=== PATIENT | male | born 1960 | race American Indian/Alaskan Native ===

== ENCOUNTER 2018-02-27 08:33 | Day surgery (SDC) | payer BC ==
[~2018-02-27 08:33] MED LIST: NACL 0.9% 1000 ML 1,000 ML IV SCH
--- NOTE | 2018-02-27 09:35 | Anesthesia Consultation ---
Anesthesia Consult and Med Hx Date of service: 02/27/18 - Airway Anesthetic Teeth Evaluation: Dentures (upper/lower) ROM Head & Neck: Adequate Mental/Hyoid Distance: Adequate Mallampati Class: Class II Intubation Access Assessment: Good - Pulmonary Exam CTA: Yes - Cardiac Exam Cardiac Exam: RRR - Pre-Operative Health Status ASA Pre-Surgery Classification: ASA1 Proposed Anesthetic Plan: MAC - Cardiovascular System Hx Heart Murmur: Yes
[2018-02-27] MEDS ORDERED: DIPRIVAN 10 MG/ML IV ONE ×2 (09:47)
[2018-02-27] MEDS ORDERED: WATER FOR IRRIG STERILE IR ONE (09:48)
--- NOTE | 2018-02-27 10:26 | Short Stay Summary ---
Short Stay Documentation Date of service: 02/27/18 Narrative H&P: The patient presents for his first screening colonoscopy. Average risks. - History Past Medical History: No medical history Past Surgical History: No surgical history Social history: no significant social history, , lives with family, no smoking, no alcohol abuse - Allergies and Medications Current Medications: Allergies No Known Allergies Allergy (Verified 02/26/18 13:17) Home Medications Medication Instructions Recorded Confirmed Last Taken Type No Known Home Medications [No 02/26/18 02/26/18 Unknown History Reported Home Medications] Active Medications Sodium Chloride (Nacl 0.9% 1000 Ml) 1,000 mls @ 50 mls/hr IV DIRECT RHYS Last Admin: 02/27/18 09:44 Dose: 50 mls/hr - Physical exam General appearance: no acute distress, well-nourished Integumentary: no rash, no growths, no abnormal pigmentation HEENT: Atraumatic, PERRLA, EOMI, Mucous membr. moist/pink Lungs: Clear to auscultation, Normal air movement Breasts: deferred Heart: Regular rate, Normal S1, Normal S2, No murmurs Gastrointestinal: normoactive bowel sounds, no tenderness, no distended, no masses, no guarding, no organomegaly Male Genitourinary: deferred Rectal Exam: normal exam-external/orifice, normal rectal tone, no mass Extremities: no ischemia, pulses intact, pulses symmetrical, No edema, normal temperature, normal color, Full ROM Neurological: Normal gait, Normal speech, Strength at 5/5 X4 ext, Normal tone, Sensation intact, Cranial nerves 3-12 NL - Brief post op/procedure progress note Date of procedure: 02/27/18 Findings: see dictated report Estimated blood loss: none Pathology: none Condition: stable - Disposition Condition at discharge: Good Disposition: DC-01 TO HOME OR SELFCARE - Discharge Diagnoses (1) Colon cancer screening Status: Acute Short Stay Discharge Plan Follow up with: RUBEN CHAN MD [Primary Care Provider] - 7 Days
--- NOTE | 2018-02-27 10:34 | Operative Report ---
Operative Report Operative Report: Date of procedure: 02/27/2018 Preprocedure diagnosis: Screening colonoscopy. No prior studies. Average risk. Post procedure diagnosis: Few left colon diverticula otherwise normal to the cecum Procedure: Colonoscopy to the cecum Endoscopist: Dr. Pearl Anesthesia: Monitored anesthesia care per anesthesia department Estimated blood loss: 0 Medications: Monitored anesthesia care. See separate report by anesthesia for details. After careful discussion of the nature and purpose of the procedure as well as details of the technique risks benefits and alternatives the patient gave consent. Please see recent history and physical from the office. The patient was placed in the left lateral decubitus position and medicated per anesthesia. A rectal exam was performed sphincter tone was normal there were no masses palpable. The Designlabn 570 scope was passed transanally and advanced under continuous direct vision without difficulty to the cecum. The colon was well prepared. The cecum was normal. The ascending colon was normal and on forward and retroflexed views. The transverse colon, descending colon, and sigmoid colon were normal with the exception of a few scattered diverticula in the sigmoid colon. The rectum was normal on forward and retroflexed views. The procedure was well-tolerated overall and the patient was observed in recovery. Conclusions: Rare sigmoid diverticula, otherwise normal colonoscopy to the cecum. Plan: Repeat colonoscopy in 10 years, sooner if clinically indicated. Signed electronically: Bharathi Pearl M.D.
--- NOTE | 2018-02-27 10:51 | Anesthesia Day of Surgery ---
Anesthesia Day of Surgery - Day of Surgery Patient Examined: Yes Patient H&P Reviewed: Yes Patient is NPO: Yes
[2018-02-27 10:58] VITALS: BP 117/79
--- NOTE | 2018-02-27 16:18 | Post Anesthesia Evaluation ---
- Post Anesthesia Evaluation Patient Participated: Yes Airway Patent: Yes Stable Respiratory Function: Yes Nausea/Vomiting: No Temp > 96.8F: Yes Pain Manageable: Yes Adequeate Hydration: Yes Anesthesia Complications: No Block Receding Appropriately: No Patient on Ventilator: No
== END 2018-02-27 08:34 | disposition home or self-care (01) ==
LOC: GIO 08:33
PROVIDERS: ATTEND Internal Medicine Gastroenterology
DX: Z12.11 Encounter for screening for malignant neoplasm of colon (principal); K57.30 Diverticulosis of large intestine without perforation or abscess without bleeding
CPT/HCPCS: 45378; J2704; J7030

== ENCOUNTER 2019-10-01 12:48 | Outpatient (CLI) | payer BC ==
[2019-10-01 13:20] LABS: Hematocrit 37.8 % (35.5-45.6); Hemoglobin 11.9 gm/dl (11.8-15.2); Mean Corpuscular HGB Conc 32 % (32-34); Mean Corpuscular Volume 71 fl (84-94); Platelet Count 179 K/mm3 (140-440); Red Cell Distribution Width 15.4 % (13.2-15.2)
[2019-10-01 13:53] LABS: Alanine Aminotransferase 22 units/L (7-56); Albumin 4.1 g/dL (3.9-5); BUN/Creatinine Ratio 13; Blood Urea Nitrogen 15 mg/dL (9-20); Calcium 9.2 mg/dL (8.4-10.2); Chol/HDL Ratio 4.17 %; HDL Cholesterol 41 mg/dL (40-59); Hemolysis Index 16; LDL Cholesterol,Direct 126 mg/dL (50-130)
== END 2019-10-01 12:49 | disposition home or self-care (01) ==
LOC: LAB 12:48
PROVIDERS: ATTEND Internal Medicine
DX: Z00.00 Encounter for general adult medical examination without abnormal findings (principal)
CPT/HCPCS: 36415; 80053; 80061; 84153; 85027

== ENCOUNTER 2020-11-11 11:27 | Outpatient (CLI) | payer BC ==
[2020-11-11 12:20] LABS: Alanine Aminotransferase 21 units/L (7-56); Albumin 4.3 g/dL (3.9-5); BUN/Creatinine Ratio 12; Blood Urea Nitrogen 16 mg/dL (9-20); Calcium 9.1 mg/dL (8.4-10.2); Chol/HDL Ratio 4.27 %; HDL Cholesterol 44 mg/dL (40-59); Hemolysis Index 6; LDL Cholesterol,Direct 139 mg/dL (50-130)
[2020-11-11 12:36] LABS: Hematocrit 39.6 % (35.5-45.6); Hemoglobin 12.6 gm/dl (11.8-15.2); Mean Corpuscular HGB Conc 32 % (32-34); Mean Corpuscular Volume 70 fl (84-94); Platelet Count 173 K/mm3 (140-440); Red Blood Count 5.61 M/mm3 (3.65-5.03); Red Cell Distribution Width 15.7 % (13.2-15.2)
[2020-11-11 16:09] LABS: Total Cells Counted 100
[2020-11-11 16:10] LABS: Anisocytosis RARE; Hypochromasia 1+
== END 2020-11-11 11:28 | disposition home or self-care (01) ==
LOC: LAB 11:27
PROVIDERS: ATTEND Internal Medicine
DX: Z00.00 Encounter for general adult medical examination without abnormal findings (principal)
CPT/HCPCS: 36415; 80053; 80061; 82306; 83036; 84153; 85007; 85025

== ENCOUNTER 2021-06-24 11:37 | Outpatient (CLI) | payer BC ==
[2021-06-24 12:17] LABS: Hematocrit 41.2 % (35.5-45.6); Hemoglobin 12.9 gm/dl (11.8-15.2); Mean Corpuscular HGB Conc 31 % (32-34); Mean Corpuscular Volume 72 fl (84-94); Platelet Count 168 K/mm3 (140-440); Red Blood Count 5.74 M/mm3 (3.65-5.03); Red Cell Distribution Width 16.3 % (13.2-15.2)
[2021-06-24 12:30] LABS: Alanine Aminotransferase 22 units/L (7-56); Albumin 4.6 g/dL (3.9-5); BUN/Creatinine Ratio 17; Blood Urea Nitrogen 19 mg/dL (9-20); Calcium 9.3 mg/dL (8.4-10.2); Hemolysis Index 5
[2021-06-24 16:37] LABS: Total Cells Counted 100
[2021-06-24 16:39] LABS: Hypochromasia 1+; Ovalocytes 1+
[2021-06-24 16:40] LABS: Platelet Estimate Consistent w Auto
== END 2021-06-24 11:38 | disposition home or self-care (01) ==
LOC: LAB 11:37
PROVIDERS: ATTEND Internal Medicine
DX: R03.0 Elevated blood-pressure reading, without diagnosis of hypertension (principal)
CPT/HCPCS: 36415; 80053; 83036; 84443; 85007; 85025

== ENCOUNTER 2021-07-29 10:28 | Outpatient (CLI) | payer BC ==
--- NOTE | 2021-07-29 15:49 | Ultrasound Report ---
US soft tissue head and neck INDICATION / CLINICAL INFORMATION: LOCALIZED SWELLING MASS AND LUMP,NECK. COMPARISON: None available. FINDINGS: Limited grayscale and color Doppler imaging within the left neck area of concern, anterior to the lef t common carotid artery. There is a 5.0 x 4.0 x 2.8 cm lesion with echogenicity similar to fat with thin internal septa. No in ternal vascularity identified. IMPRESSION: 1. 5.0 cm lipoma without suspicious features in the left neck area of concern. Scribed by: Rosa Ren RDMS, RVT Scribed: 07/29/2021 2:37 PM I have reviewed the images, agree with this report, and edited this report as needed. Signer Name: Dominick Aldrich MD Signed: 07/29/2021 3:44 PM Workstation Name: [id number]
== END 2021-07-29 10:29 | disposition home or self-care (01) ==
LOC: US 10:28
PROVIDERS: ATTEND Surgery
DX: R22.1 Localized swelling, mass and lump, neck (principal)
CPT/HCPCS: 76536

== ENCOUNTER 2021-09-28 06:06 | Day surgery (SDC) | payer BC ==
[2021-09-23 09:51] LABS: Hematocrit 41.6 % (35.5-45.6); Mean Corpuscular HGB Conc 31 % (32-34); Mean Corpuscular Volume 72 fl (84-94); Platelet Count 177 K/mm3 (140-440); Red Blood Count 5.81 M/mm3 (3.65-5.03); Red Cell Distribution Width 15.4 % (13.2-15.2)
[2021-09-23 10:09] LABS: BUN/Creatinine Ratio 12; Blood Urea Nitrogen 16 mg/dL (9-20); Calcium 9.4 mg/dL (8.4-10.2); Hemolysis Index 1
[2021-09-28] MEDS ORDERED: LACTATED RINGERS 1,000 ML ONE (06:26)
[2021-09-28] MEDS ORDERED: ceFAZolin/STERILE WATER 2 GM/20 ML SYRINGE IV NR (07:00)
[2021-09-28] MEDS ORDERED: LIDOCAINE (1%) 10 MG/1 ML VIAL 20 ML MDV ONE (07:02)
[2021-09-28] MEDS ORDERED: BUPIVACAINE/PF (0.5%) 5 MG/1 ML 30 ML VIAL INFILTRATI ONE ×3 (07:02→08:32)
[2021-09-28] MEDS ORDERED: propofoL 200 MG/20 ML VIAL IV ONE (07:30)
[2021-09-28] MEDS ORDERED: HYDROmorphone 1 MG/1 ML INJ ONE (07:30)
[2021-09-28] MEDS ORDERED: ROCURONIUM 50 MG/5 ML INJ IV ONE ×2 (07:31→08:54)
[2021-09-28] MEDS ORDERED: LIDOCAINE MPF (2%) 20 MG/1 ML VIAL 5 ML ONE (07:31)
[2021-09-28] MEDS ORDERED: ONDANSETRON 4 MG/2 ML INJ IV PRN (07:35)
[2021-09-28] MEDS ORDERED: ACETAMINOPHEN 500 MG TAB PO NR (07:35)
[2021-09-28] MEDS ORDERED: MAGNESIUM OXIDE 400 MG TAB PO NR (07:35)
[2021-09-28] MEDS ORDERED: HYDROmorphone 1 MG/1 ML INJ IV PRN (07:35)
[2021-09-28] MEDS ORDERED: fentaNYL 100 MCG/2 ML INJ IV NR (07:35)
--- NOTE | 2021-09-28 07:36 | Anesthesia Day of Surgery ---
Anesthesia Day of Surgery - Day of Surgery Patient Examined: Yes Patient H&P Reviewed: Yes Patient is NPO: Yes
--- NOTE | 2021-09-28 07:38 | Anesthesia Consultation ---
Anesthesia Consult and Med Hx Date of service: 09/28/21 - Airway Anesthetic Teeth Evaluation: Partials (LOwer), Edentulous (Upper) ROM Head & Neck: Adequate Mental/Hyoid Distance: Adequate Mallampati Class: Class I Intubation Access Assessment: Good (Has neck mass; midline trachea) - Pre-Operative Health Status ASA Pre-Surgery Classification: ASA1 Proposed Anesthetic Plan: General Nerve Block: TAP - Pulmonary Hx Smoking: No Hx Sleep Apnea: No (SNORES-HIGH RISK ON KARLOS SCREEN) - Cardiovascular System Hx Hypertension: No Hx Heart Murmur: Yes - Central Nervous System Hx Psychiatric Problems: No - Gastrointestinal Hx Gastroesophageal Reflux Disease: No - Hematic Hx Sickle Cell Disease: No - Other Systems Hx Alcohol Use: No Hx Substance Use: No Hx Cancer: No
[2021-09-28] MEDS ORDERED: dexAMETHasone 4 MG/ML VIAL ONE (07:41)
[2021-09-28] MEDS ORDERED: BUPIVACAINE/PF (0.25%) 2.5 MG/ML 30 ML VIAL INFILTRATI ONE (07:41)
[2021-09-28] MEDS ORDERED: BUPIVACAINE-EPINEPHRINE/PF 0.25%-1:200,000 (30 ML) VIAL INFILTRATI ONE (07:41)
[2021-09-28] MEDS ORDERED: CELECOXIB 200 MG CAP PO NR (08:00)
[2021-09-28] MEDS ORDERED: LACTATED RINGERS 1,000 ML IV SCH (08:00)
[2021-09-28] MEDS ORDERED: MIDAZOLAM 2 MG/2 ML INJ IV NR (08:00)
[2021-09-28] MEDS ORDERED: SODIUM CHLORIDE 0.9% IRR 1,500 ML BOTTLE IR ONE (08:32)
[2021-09-28] MEDS ORDERED: WATER FOR IRRIG STERILE 1,500 ML BOTTLE IR ONE (08:32)
[2021-09-28] MEDS ORDERED: LIDOCAINE (1%) 10 MG/1 ML VIAL 20 ML MDV INFILTRATI ONE ×2 (08:32)
[2021-09-28] MEDS ORDERED: NEOSTIGMINE 10MG/10 ML INJ MDV ONE (10:38)
[2021-09-28] MEDS ORDERED: ONDANSETRON 4 MG/2 ML INJ ONE (10:38)
[2021-09-28] MEDS ORDERED: GLYCOPYRROLATE 0.4 MG/2 ML INJ ONE (10:38)
--- NOTE | 2021-09-28 10:46 | Short Stay Summary ---
Short Stay Documentation Date of service: 09/28/21 - History Principal diagnosis: VENTRAL HERNIA, SOFT TISSUE MASS NECK H&P: obtained from office - Allergies and Medications Current Medications: Allergies No Known Allergies Allergy (Verified 02/26/18 13:17) Home Medications Medication Instructions Recorded Confirmed Last Taken Type Ascorbic Acid [Vitamin C] 500 mg PO DAILY 09/15/21 09/15/21 Unknown History Multivitamin [One-Daily 1 each PO DAILY 09/15/21 09/15/21 Unknown History Multi-Vitamin] Yoder-3 Fatty Acids/Fish Oil [Fish 1 each PO DAILY 09/15/21 09/15/21 Unknown History Oil] Active Medications Acetaminophen (Acetaminophen 500 Mg Tab) 1,000 mg PO ONCE NR Stop: 09/28/21 20:00 Cefazolin Sodium (Cefazolin/Sterile Water 2 Gm/20 Ml Syringe) 2 gm IV PREOP NR Stop: 09/28/21 20:00 Celecoxib (Celecoxib 200 Mg Cap) 400 mg PO PREOP NR Stop: 09/28/21 12:00 Hydromorphone HCl (Hydromorphone 1 Mg/1 Ml Inj) 0.25 mg IV Q10MIN PRN PRN Reason: Pain, Moderate (4-6) Stop: 09/28/21 20:00 Hydromorphone HCl (Hydromorphone 1 Mg/1 Ml Inj) 0.5 mg IV Q10MIN PRN PRN Reason: Pain , Severe (7-10) Stop: 09/28/21 20:00 Lactated Ringer's (Lactated Ringers) 1,000 mls @ 125 mls/hr IV DIRECT RHYS Last Admin: 09/28/21 06:45 Dose: 125 mls/hr Magnesium Oxide (Magnesium Oxide 400 Mg Tab) 400 mg PO ONCE NR Stop: 09/28/21 12:00 Midazolam HCl (Midazolam 2 Mg/2 Ml Inj) 2 mg IV PREOP NR Stop: 09/28/21 23:59 - Brief post op/procedure progress note Date of procedure: 09/28/21 Pre-op diagnosis: incarcerated ventral hernia,soft tissue mass neck Post-op diagnosis: same Procedure: robotic assisted ventral hernia repair with mesh excision soft tissue mass neck Anesthesia: GETA, local, other (block) Findings: 2.5cm x 2 cm ventral hernia containing incarcerated preperitoneal fat 4 cm lipoma of anterior neck Surgeon: ROSEMARIE EMERSON Food Safety Officer: SHEREEN LEONG Estimated blood loss: minimal Pathology: list (soft tissue mass neck) Specimen disposition: to lab Condition: stable - Hospital course Hospital course: Pt observed in PACU and discharged home in stable condition when criteria met - Disposition Condition at discharge: Good Disposition: 01 HOME / SELF CARE / HOMELESS Short Stay Discharge Plan Activity: other (no heavy lifting for 6 weeks) Diet: regular Wound: open to air, per your surgeon's advice Additional Instructions: see printed instructions Follow up with: SONAL BARTLETT MD [Primary Care Provider] - 7 Days ROSEMARIE EMERSON DO [Staff Physician] - 14 Days Prescriptions: Gabapentin 300 mg PO BID #6 cap Ibuprofen [Motrin 800 MG tab] 800 mg PO Q8HR PRN #30 tablet PRN Reason: Pain, Moderate (4-6) HYDROcodone/APAP 5-325 [Leslie 5/325] 1 each PO Q6H PRN #20 tablet PRN Reason: Pain , Severe (7-10)
[2021-09-28] MEDS: HYDROmorphone 1 MG/1 ML INJ IV PRN ×2 (11:20→11:47)
--- NOTE | 2021-09-28 11:47 | Operative Report ---
Operative Report Operative Report: Date of procedure: 09/28/21 Pre-op diagnosis: incarcerated ventral hernia,soft tissue mass neck Post-op diagnosis: same Procedure: robotic assisted ventral hernia repair with mesh excision soft tissue mass neck Anesthesia: GETA, local, other (block) Findings: 2.5cm x 2 cm ventral hernia containing incarcerated preperitoneal fat 4 cm lipoma of anterior neck Surgeon: ROSEMARIE EMERSON Unit Tender: SHEREEN LEONG Estimated blood loss: minimal Pathology: list (soft tissue mass neck) Specimen disposition: to lab Condition: stable Hospital course: Pt observed in PACU and discharged home in stable condition when criteria met HPI and indication: 61-year-old male who presents to surgery clinic for evaluation of a bulge above his umbilicus and mass of anterior neck. The bulge had been present for some time and was not reducible on exam. Patient was found to have incarcerated ventral hernia and repair recommended. The neck mass was evaluated with u/s and showed a lipoma. It was recommended that the hernia be repaired and neck mass removed. All risk, benefits, alternatives to surgery discussed with patient and questions answered. The patient was in agreement and consent obtained for robotic assisted ventral hernia repair with mesh, possible open AND excision of anterior neck mass. Procedure in detail: The patient was identified in the preoperative area and taken back to the operating room and placed on the operating room table in supine position. After anesthesia was induced, both arms were tucked with all bony prominences padded appropriately. The abdomen was then prepped and draped in usual sterile fashion and a timeout was performed. The patient had a TAP block performed by anesthesia preoperatively. A nikki incision was made in the left upper quadrant at Barrios's point through which a Veress needle was inserted. The Veress needle position was confirmed using the saline drop test and the abdomen insufflated to 15 mmHg without incident. A 5 mm incision was made in the right upper quadrant through which a 5 mm Optiview trocar was placed under direct visualization. The abdomen was inspected and there was no underlying injury to any of the abdominal structures. The Veress needle was identified and removed. A 12 mm balloon trocar was placed in the right lateral abdomen and an 8 mm robotic trocar in the right lower quadrant under direct visualization. The 5 mm right upper quadrant trocar was replaced with an 8 mm robotic trocar under direct visualization. The patient was tilted to the left and the robot docked. A fenestrated bipolar was placed in arm #2 and a monopolar scissor in arm #1. The surgeon was then transferred to the console. I started by creating a preperitoneal flap to the right of the hernia defect. The peritoneum was scored to the right of the hernia defect using a monopolar scissor and a preperitoneal plane developed in an avascular plane. Using a combination of blunt dissection and cautery the plane superior to and inferior to the hernia was developed. There was a moderate amount of preperitoneal fat incarcerated in the hernia which was carefully dissected and reduced. The hernia sac was completely reduced. I then carried the preperitoneal dissection to the left aspect of the hernia defect in order to accommodate mesh placement. Once the dissection was complete the pocket was checked for hemostasis which was ensured. The hernia defect was measured at 2.5 cm x 2 cm. It was decided to fix the hernia with a 12 cm bard flat polypropylene mesh. The mesh along with suture material placed into the abdomen by the shampoo assistant. First the hernia defect was closed using a 0-vloc running stitch. The pressure in the abdomen was turned down to 8 mmHg. The mesh was then placed in the preperitoneal space and centered. The mesh was sutured into place in all 4 quadrants using interrupted 2-0 Vicryl stitches. The mesh laid flat in the preperitoneal space with adequate overlap of the hernia. The peritoneum was approximated using 2-0 VLoc running stitch. The entirety of the mesh was covered by peritoneum. The robot was then undocked and the surgeon scrubbed back in. The remainder of the case was performed laparoscopically. All sharp and suture material was removed under direct visualization. The 12 mm port was removed and the fascia closed with an interrupted 0-vicryl stitch using the Niranjan Thomas device.. The right lower quadrant port fascia was also closed with an interrupted 0 Vicryl stitch using the Niranjan Thomas device. The right upper quadrant port was removed and the abdomen desufflated. The skin incisions were closed with 4-0 Monocryl subcuticular stitches and skin glue. Once the glue was dry a 4 x 4 gauze was balled up and placed at the site of the hernia and secured with a Tegaderm. At the end of the case, all sponge, instrument, sharp counts were correct 2. I then turned my attention to the neck mass. The patient's head was turned to the right and slightly extended. The area was prepped and draped in the usual sterile fashion. Local anesthetic was infiltrated into the skin at the intended incision site. A 3 cm incision was made over the palpable mass using 15 blade. The mass was identified and circumfrentially dissected from normal surrounding tissue using blunt dissection and cautery. Once the mass was completely dissected it was removed from the wound and measured approximately 4cm. It was fatty and lobulated consistent with lipoma. The wound was irrigated and hemostasis very carefully ensured. The incision was closed in layered fashion. The deep dermal layer was approximated using 3-0 Vicryl interrupted stitches. The skin was approximated using 4-0 Monocryl running subcuticular stitch and skin glue. At the end of the case, all sponge, instrument, sharp counts were correct x2. The patient was awoken from anesthesia, extubated and taken to PACU in stable condition. An abdominal binder was applied to the patient. Patient's was updated
[2021-09-28 15:03] VITALS: BP 136/70
--- NOTE | 2021-09-28 23:44 | Post Anesthesia Evaluation ---
- Post Anesthesia Evaluation Patient Participated: Yes Airway Patent: Yes Stable Respiratory Function: Yes Nausea/Vomiting: No Temp > 96.8F: Yes Pain Manageable: Yes Adequeate Hydration: Yes Anesthesia Complications: No Block Receding Appropriately: Not Applicable Patient on Ventilator: No
== END 2021-09-28 12:25 | disposition home or self-care (01) ==
LOC: OR 06:06
PROVIDERS: ATTEND Surgery
DX: K43.6 Other and unspecified ventral hernia with obstruction, without gangrene (principal); D17.0 Benign lipomatous neoplasm of skin and subcutaneous tissue of head, face and neck; Z20.822 Contact with and (suspected) exposure to COVID-19; Z79.899 Other long term (current) drug therapy; Z98.890 Other specified postprocedural states
CPT/HCPCS: 21552; 36415; 49653; 64488; 80048; 85027; 88304; C1781; J0690; J1100; J1170; J1815; J2250; J2405; J2704; J2710; J3010; J3490; J7120; S2900; U0003; 64450

== ENCOUNTER 2022-02-24 10:12 | Outpatient (CLI) | payer BC ==
[2022-02-24 10:57] LABS: Hematocrit 40.7 % (35.5-45.6); Hemoglobin 13.1 gm/dl (11.8-15.2); Mean Corpuscular HGB Conc 32 % (32-34); Mean Corpuscular Volume 70 fl (84-94); Platelet Count 173 K/mm3 (140-440); Red Blood Count 5.78 M/mm3 (3.65-5.03); Red Cell Distribution Width 15.6 % (13.2-15.2)
[2022-02-24 11:14] LABS: Alanine Aminotransferase 18 units/L (7-56); Albumin 4.7 g/dL (3.9-5); BUN/Creatinine Ratio 13; Blood Urea Nitrogen 16 mg/dL (9-20); Chol/HDL Ratio 4.95 %; HDL Cholesterol 45 mg/dL (40-59); Hemolysis Index 2; LDL Cholesterol,Direct 161 mg/dL (50-130); Uric Acid 7.8 mg/dL (3.5-7.6)
[2022-02-24 12:05] LABS: Total Cells Counted 100
[2022-02-24 12:07] LABS: Anisocytosis 2+; Poikilocytosis Few
[2022-02-24 12:08] LABS: Hypochromasia 1+; Large Platelets Rare; Ovalocytes Rare; Platelet Estimate Consistent w Auto
== END 2022-02-24 10:13 | disposition home or self-care (01) ==
LOC: LAB 10:12
PROVIDERS: ATTEND Internal Medicine
DX: Z00.00 Encounter for general adult medical examination without abnormal findings (principal); M10.9 Gout, unspecified
CPT/HCPCS: 36415; 80053; 80061; 83036; 84153; 84550; 85007; 85025

== ENCOUNTER 2022-03-30 14:04 | Outpatient (CLI) | payer BC | END 2022-03-30 14:05 | disposition home or self-care (01) | LOC: LAB 14:04 | PROVIDERS: ATTEND Internal Medicine | DX: Z13.21 Encounter for screening for nutritional disorder (principal); M10.9 Gout, unspecified | CPT/HCPCS: 36415; 82306; 84550 ==